=== PATIENT | female | born 1965 | race African-American/Black ===

== ENCOUNTER 2016-05-02 15:36 | Emergency (ER) ==
[2016-05-02 16:02] VITALS: BP 141/78
[2016-05-02] MEDS ORDERED: MOTRIN PO ONE (16:32)
--- NOTE | 2016-05-02 16:36 | PROVIDER DOCUMENTATION ---
HPI-Musculoskeletal Pain/Inj - GENERAL Chief Complaint: Extremity Pain Stated Complaint: LEG PAIN Time Seen by Provider: 05/02/16 16:08 Source: patient, old records - HX OF PRESENT ILLNESS-MUSKULOSKELTAL Nature of Presenting Problem: This pt, who is well known to the ED, presents today c complaints of LLE pain and "freezing up." She has presented c similar complaints on numerous occasions. She reports that she needs something "strong for her pain." She states that she has been trying to get in c pain management but "no one will take me." She is moving her extremity in the room without difficulty. No other issues or complaints. Quality of Pain: reports: aching Severity in ED: mild Onset/Duration: other (see hpi) Timing: still present Modifying Factors: improves with: movement Any recent injury?: No Similar Symptoms Previously?: Yes Recently seen or treated by another doctor?: Yes Review of Systems - Adult - REVIEW OF SYSTEMS - ADULT Constitutional: reports: no symptoms reported. denies: chills, fever Eyes: reports: no symptoms reported. denies: discharge, dry eyes Ears, Nose, Mouth & Throat: reports: no symptoms reported. denies: ear discharge, ear pain Cardiovascular: reports: no symptoms reported. denies: chest pain, edema Respiratory: reports: no symptoms reported. denies: chronic cough, cough Gastrointestinal: reports: no symptoms reported. denies: abdominal pain, hematemesis Genitourinary: reports: no symptoms reported. denies: dysuria, discharge Musculoskeletal: reports: joint pain, muscle aches. denies: bone pain, back pain Integumentary: reports: no symptoms reported. denies: hives, hair loss Neurological: reports: no symptoms reported. denies: ataxia, dizziness/vertigo Psychiatric: reports: alcohol/drug dependence. denies: insomnia, panic attacks Endocrine: reports: no symptoms reported Hematologic/Lymphatic: reports: no symptoms reported Allergic/Immunologic: reports: no symptoms reported All Other Systems: Reviewed and Negative Past History - Adult - PAST MEDICAL HISTORY-ADULT Review of Records: reports: Old Records Reviewed, Nursing Assessment Review, Medications Reviewed, Social history reviewed & non-contributory. Major Childhood Illnesses: reports: denies history Cardiovascular: reports: CHF Respiratory: reports: denies history Gastrointestinal: reports: GERD Obstetrical/Gynecological: reports: denies history Genitourinary: reports: denies history Musculoskeletal: reports: chronic pain (back), intervertebral disc disease, neck /back injury, other (chronic LLE pain) Neurological: reports: TIA Psychiatric: reports: anxiety, depression, schizophrenia Endocrine/Immune: reports: denies history Other Conditions: reports: denies history - PRIOR SURGERIES/PROCEDURES Surgical/Procedure History: reports: back/neck, other (lumbar fusion) - IMMUNIZATION STATUS Childhood Immunizations: See Nurse Assessment Flu Vaccine: See Nurse Assessment - FAMILY HISTORY Family History: reviewed, not pertinent Physical Exam-Injury Related - Physical Exam-Injury Related Initial Vital Signs Reviewed: Yes General Appearance: appears well, alert, no apparent distress Eyes: PERRL/EOMI, pink conjunctivae Head, Ears, Nose, Mouth & Throat: normocephalic/atraumatic, normal ENT inspection, TMs normal, pharynx normal Neck: non-tender, full range of motion, supple, normal inspection Respiratory: chest non-tender, lungs clear, normal breath sounds, no pleuratic chest pain, no respiratory distress, no accessory muscle use Cardiovascular: normal peripheral pulses, regular rate, rhythm, no edema, no gallop, no JVD, no murmur Abdominal Exam: normal bowel sounds, non tender, soft, no organomegaly, no pulsatile mass Lymphatic: no adenopathy Back Exam: normal inspection, no CVA tenderness, no vertebral tenderness Extremity: normal range of motion, normal gait, normal inspection, no pedal edema, no calf tenderness, normal capillary refill, pelvis stable, tenderness ( LLE; out of proportion to exam). 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 negative: motor weakness, sensory deficit Psych/Mental Status: AL, normal mood/affect, normal thought content, normal thought process, oriented x 3 Progress - PLAN OF CARE/RESULTS Progress/Plan/Lab Results: Orders Category Date Time Status Ibuprofen [Motrin] Med 05/02/16 16:32 Discontinued 800 mg PO NOW ONE Vital Signs Temp Pulse Resp BP Pulse Ox 05/02/16 16:00 97.9 F 103 H 20 141/78 100 fluphenazine Allergy (Unknown, Verified 05/02/16 16:34) Unknown Penicillins Allergy (Unknown, Verified 05/02/16 16:34) Unknown No Home Medications 04/27/16 Had a long conversation c pt about the treatment of chronic pain and the use of the ER. I informed her that I would not be filling any narcotic prescriptions. She became agitated and began to argue but I stopped the conversation and told her that I would give her antiinflammatories but nothing else. Pt will be d/c home. Departure - Departure Time of Disposition Order: 16:36 DIAGNOSIS: Leg pain, left Chronic pain Qualifiers: Chronic pain type: other chronic pain Qualified Code(s): G89.29 - Other chronic pain Disposition: HOME 01 Certified Medical Emergency: Urgent Condition: Good Additional Instructions: Take medication as prescribed. ED Follow Up Instructions: You have been treated by a care provider in the Emergency Department. These instructions are being provided to you so you can have an understanding of how to care for yourself upon discharge. Upon discharge from the Emergency Department, you are responsible for making arrangements for follow-up care by a physician of your choice. Take all prescribed medications as directed. Return to the Emergency Department immediately for any new or worsening symptoms. You may call the Physician Referral phone number at [phone] to obtain a list of Physicians who are taking new patients. Prescriptions: Meloxicam [Mobic] 7.5 mg PO DAILY PRN PRN #15 tablet PRN Reason: Pain Omeprazole [Prilosec] 20 mg PO DAILY@0700 #20 capsule Attestation - Physician/ Mid-level Attestation Patient care was provided by Mid-level provider (AMMUNITION STOREKEEPER/PA):: Yes Mid-level provider:: Chris Cardenas Mid-level documentation review:: The Mid-level provider documentation, treatment plan and medical decision making was reviewed by the physician who agrees with all treatment and medical decision making by the MLP.
== END 2016-05-02 16:48 | disposition home or self-care (01) ==
LOC: ED 15:36
DX: M79.605 Pain in left leg (principal); G89.29 Other chronic pain; M79.1 Myalgia; M54.9 Dorsalgia, unspecified; Z86.73 Personal history of transient ischemic attack (TIA), and cerebral infarction without residual deficits; Z98.1 Arthrodesis status
CPT/HCPCS: 99282

== ENCOUNTER 2016-05-03 16:14 | Emergency (ER) ==
[2016-05-03] MEDS ORDERED: TORADOL PO ONE (18:27)
--- NOTE | 2016-05-03 18:29 | PROVIDER DOCUMENTATION ---
HPI-Musculoskeletal Pain/Inj - GENERAL Chief Complaint: Extremity Pain Stated Complaint: EXTREMITY PAIN Time Seen by Provider: 05/03/16 18:17 Source: patient - HX OF PRESENT ILLNESS-MUSKULOSKELTAL Nature of Presenting Problem: Pt is a 50 y/o AA female c chief complaint of bilat lower extremity pain x 3 months. Pt states her legs feel like, "they are jumping all over the place." Pt has a long h/o psychiatric disorder (paranoid schizophrenia), polysubstance abuse, and chronic lower extremity pain. Pt states that she was seen at [facility] last night but is not going to take the NSAIDs she was prescribed. Pt does also have a h/o perforated gastric ulcers. On arrival, pt is oriented, ambulatory, and in no distress. She denies SI/HI or changes in her baseline schizophrenia. Pt is followed by mental health. Review of Systems - Adult - REVIEW OF SYSTEMS - ADULT Constitutional: reports: no symptoms reported. denies: chills, fatique Eyes: reports: no symptoms reported. denies: blurred vision, double vision Ears, Nose, Mouth & Throat: reports: no symptoms reported. denies: ear pain, nose pain Cardiovascular: reports: no symptoms reported. denies: chest pain, irregular heart rate Respiratory: reports: no symptoms reported. denies: cough, shortness of breath Gastrointestinal: reports: no symptoms reported. denies: abdominal pain, nausea Genitourinary: reports: no symptoms reported. denies: dysuria, hematuria Musculoskeletal: reports: bone pain, frequent leg cramps, muscle aches. denies : joint swelling Integumentary: reports: no symptoms reported. denies: itching, rash Neurological: reports: no symptoms reported. denies: numbness, paresthesia Psychiatric: reports: no symptoms reported. denies: anxiety, emotional problems Endocrine: reports: no symptoms reported. denies: cold intolerance, heat intolerance Hematologic/Lymphatic: reports: no symptoms reported. denies: blood clots, lymphedema Allergic/Immunologic: reports: no symptoms reported. denies: allergic reactions , frequent infections All Other Systems: Reviewed and Negative Past History - Adult - PAST MEDICAL HISTORY-ADULT Review of Records: reports: Old Records Reviewed, Nursing Assessment Review, Medications Reviewed, Social history reviewed & non-contributory. Major Childhood Illnesses: reports: denies history Cardiovascular: reports: CHF Respiratory: reports: denies history Gastrointestinal: reports: GERD Obstetrical/Gynecological: reports: denies history Genitourinary: reports: denies history Musculoskeletal: reports: chronic pain (back), intervertebral disc disease, neck /back injury, other (chronic LLE pain) Neurological: reports: TIA Psychiatric: reports: anxiety, depression, schizophrenia Endocrine/Immune: reports: denies history Other Conditions: reports: denies history - PRIOR SURGERIES/PROCEDURES Surgical/Procedure History: reports: back/neck, other (lumbar fusion) - IMMUNIZATION STATUS Childhood Immunizations: See Nurse Assessment Flu Vaccine: See Nurse Assessment - FAMILY HISTORY Family History: reviewed, not pertinent Physical Exam-Injury Related - Physical Exam-Injury Related Initial Vital Signs Reviewed: Yes General Appearance: appears well, alert, no apparent distress Eyes: PERRL/EOMI, pink conjunctivae Head, Ears, Nose, Mouth & Throat: normocephalic/atraumatic, normal ENT inspection, TMs normal, pharynx normal Neck: non-tender, full range of motion, supple, normal inspection Respiratory: chest non-tender, lungs clear, normal breath sounds, no pleuratic chest pain, no respiratory distress, no accessory muscle use Cardiovascular: normal peripheral pulses, regular rate, rhythm, no edema, no gallop, no JVD, no murmur Abdominal Exam: normal bowel sounds, non tender, soft, no organomegaly, no pulsatile mass Lymphatic: no adenopathy Back Exam: normal inspection, no CVA tenderness, no vertebral tenderness Extremity: normal range of motion, non-tender, normal gait, normal inspection, no pedal edema, no calf tenderness, normal capillary refill, pelvis stable Integumentary: normal color, warm/dry 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 [Klor-Con] Med 05/03/16 19:36 Once 40 meq PO NOW ONE Tramadol [Ultram] Med 05/03/16 18:30 Discontinued 50 mg PO NOW ONE Laboratory Tests 05/03/16 05/03/16 18:58 18:58 WBC 7.19 RBC 4.30 Hgb 12.1 Hct 37.2 MCV 86.5 MCH 28.1 MCHC 32.5 L RDW Std Deviation 15.4 H Plt Count 318 MPV 8.9 Immature Gran % (Auto) 0.1 Neut % (Auto) 53.5 Lymph % (Auto) 33.9 [place] % (Auto) 10.2 H Eos % (Auto) 1.9 Baso % (Auto) 0.4 Immature Gran # (Auto) 0.01 Neut # (Auto) 3.84 Lymph # (Auto) 2.44 [place] # (Auto) 0.73 H Eos # (Auto) 0.14 Baso # (Auto) 0.03 Sodium 138 Potassium 3.3 L Chloride 102 Carbon Dioxide 27 Anion Gap 9 BUN 12 Creatinine 0.4 L Estimated GFR/1.73 m2 > 60 BUN/Creatinine Ratio 30 Glucose 140 H Calculated Osmolality 278 Calcium 9.6 Vital Signs - 24 hr 05/03/16 05/03/16 16:45 16:49 Temperature 97.1 F L Pulse Rate 83 Respiratory 18 Rate Blood Pressure 148/86 O2 Sat by Pulse 100 Oximetry Departure - Departure Time of Disposition Order: 18:28 DIAGNOSIS: Hypokalemia Chronic leg pain Qualifiers: Laterality: bilateral Qualified Code(s): M79.604 - Pain in right leg Disposition: HOME 01 Certified Medical Emergency: Emergent Condition: Stable Additional Instructions: ED Follow Up Instructions: You have been treated by a care provider in the Emergency Department. These instructions are being provided to you so you can have an understanding of how to care for yourself upon discharge. Upon discharge from the Emergency Department, you are responsible for making arrangements for follow-up care by a physician of your choice. Take all prescribed medications as directed. Return to the Emergency Department immediately for any new or worsening symptoms. You may call the Physician Referral phone number at [phone] to obtain a list of Physicians who are taking new patients. Prescriptions: Potassium Chloride E.r. [Klor-Con] 10 meq PO DAILY #30 tablet Acetaminophen/Diphenhydramine [Percogesic 325-12.5 mg Tablet] 1 each PO Q4-6H PRN PRN #20 tablet PRN Reason: Pain Referrals: None,PCP [Primary Care Provider] - [facility] [Provider Group] Attestation - Physician/ Mid-level Attestation Patient care was provided by Mid-level provider (RESEARCH EDITOR/PA):: Yes Mid-level provider:: Vernon Torres Mid-level documentation review:: The Mid-level provider documentation, treatment plan and medical decision making was reviewed by the physician who agrees with all treatment and medical decision making by the MLP.
[2016-05-03] MEDS ORDERED: ULTRAM PO ONE (18:30)
[2016-05-03 19:14] LABS: MANUAL DIFF NEEDED? NO
[2016-05-03 19:19] LABS: BASO% 0.4 % (0.0-0.8); EOS# 0.14 X1000 (0.0-0.7); EOS% 1.9 % (0.0-10.0); HEMATOCRIT 37.2 % (37.0-47.0); HEMOGLOBIN 12.1 g/dL (12.0-16.0); IMM GRAN# 0.01 X1000 (0.0-0.04); IMM GRAN% 0.1 % (0.0-0.5); LYMPH# 2.44 X1000 (1.2-3.4); LYMPH% 33.9 % (20.5-51.1); MCH 28.1 PG (27-31); MCHC 32.5 g/dL (33-37); MCV 86.5 FL (81-99); MONO# 0.73 X1000 (0.11-0.59); MONO% 10.2 % (1.7-9.3); MPV 8.9 FL (7.4-10.4); NEUT% 53.5 % (42.2-75.2); PLT 318 X1000 (130-400)
[2016-05-03 19:30] LABS: AGAP 9; BUN 12 mg/dL (8-22); CALCIUM 9.6 mg/dL (8.8-10.2); CHLORIDE 102 mmol/L (98-107); COSMO 278; POTASSIUM 3.3 mmol/L (3.5-5.1); SODIUM 138 mmol/L (136-145); TCO2 27 mmol/L (25-35)
[2016-05-03] MEDS ORDERED: KLOR-CON PO ONE (19:36)
[2016-05-03 20:00] VITALS: BP 122/77
== END 2016-05-03 19:59 | disposition home or self-care (01) ==
LOC: P.ED 16:14
DX: E87.6 Hypokalemia (principal); G89.29 Other chronic pain; M79.605 Pain in left leg; M79.604 Pain in right leg; M79.1 Myalgia; R25.2 Cramp and spasm; M54.9 Dorsalgia, unspecified; Z86.73 Personal history of transient ischemic attack (TIA), and cerebral infarction without residual deficits; Z98.1 Arthrodesis status
CPT/HCPCS: 80048; 85025; 99283

== ENCOUNTER 2016-05-05 01:40 | Emergency (ER) ==
[2016-05-05 01:49] VITALS: BP 134/89
--- NOTE | 2016-05-05 02:14 | PROVIDER DOCUMENTATION ---
HPI-Musculoskeletal Pain/Inj - GENERAL Chief Complaint: Extremity Pain Stated Complaint: LEFT LEG PAIN Time Seen by Provider: 05/05/16 01:43 Source: patient - HX OF PRESENT ILLNESS-MUSKULOSKELTAL Nature of Presenting Problem: 50 year old F presents to the ED with a cc of left leg pain. PT was seen last night at [place] for the same. PT pain is chronic. Quality of Pain: reports: aching Severity in ED: mild Onset/Duration: 24 hours ago Timing: still present Modifying Factors: improves with: nothing Any recent injury?: No Locality of Occurance: Home Similar Symptoms Previously?: Yes Recently seen or treated by another doctor?: Yes - LOWER EXTREMITY PAIN/INJURY Lower Extremities Pain: leg: left Context / Method of Injury: reports: unknown Associated Symptoms: reports: denies symptoms Review of Systems - Adult - REVIEW OF SYSTEMS - ADULT Constitutional: denies: chills, fever Eyes: reports: no symptoms reported Ears, Nose, Mouth & Throat: reports: no symptoms reported Cardiovascular: denies: chest pain, palpitations Respiratory: denies: cough, wheezing Gastrointestinal: denies: nausea, vomiting Genitourinary: reports: no symptoms reported Musculoskeletal: reports: muscle aches. denies: muscle weakness Integumentary: denies: skin sores/ulcer, skin thickening Neurological: reports: no symptoms reported Psychiatric: reports: no symptoms reported Endocrine: reports: no symptoms reported Hematologic/Lymphatic: reports: no symptoms reported Allergic/Immunologic: reports: no symptoms reported All Other Systems: Reviewed and Negative Past History - Adult - PAST MEDICAL HISTORY-ADULT Review of Records: reports: Nursing Assessment Review, Medications Reviewed Major Childhood Illnesses: reports: denies history Cardiovascular: reports: CHF Gastrointestinal: reports: GERD Musculoskeletal: reports: chronic pain (back), intervertebral disc disease, neck /back injury, other (chronic LLE pain) Neurological: reports: TIA Psychiatric: reports: anxiety, depression, schizophrenia - PRIOR SURGERIES/PROCEDURES Surgical/Procedure History: reports: back/neck, other (lumbar fusion) - IMMUNIZATION STATUS Childhood Immunizations: See Nurse Assessment Flu Vaccine: See Nurse Assessment - FAMILY HISTORY Family History: reviewed, not pertinent - SOCIAL HISTORY Smoking: cigarettes, greater than 1 pack/day Provider spent 3-5 mins advising pt. on dangers of tobacco.: Discussed manners to quit use, and f/u contacts for add'l counseling. Substance Use: none/never Alcohol Use Frequency: never Physical Exam-Injury Related - Physical Exam-Injury Related Initial Vital Signs Reviewed: Yes General Appearance: appears well, alert, no apparent distress Respiratory: chest non-tender, lungs clear, normal breath sounds Cardiovascular: normal peripheral pulses, regular rate, rhythm, no edema Extremity: normal inspection Integumentary: normal color, warm/dry Psych/Mental Status: AL, normal mood/affect, normal thought content, normal thought process, oriented x 3 Progress - PLAN OF CARE/RESULTS Progress/Plan/Lab Results: plan of care: medications Orders Category Date Time Status Hydroxyzine Med 05/05/16 02:17 Once 50 mg IM NOW ONE Vital Signs - 24 hr 05/05/16 01:47 Temperature 98.2 F Pulse Rate 95 H Respiratory 20 Rate Blood Pressure 134/89 O2 Sat by Pulse 99 Oximetry Pt given results and will be d/c home w/ rx to follow up with PCP. Pt verbally understood instructions. PT remained clinically stable throughout the course of the ED stay and will return if symptoms worsen. Departure - Departure Time of Disposition Order: 02:18 DIAGNOSIS: Leg pain, left Chronic pain Qualifiers: Chronic pain type: chronic pain syndrome Qualified Code(s): G89.4 - Chronic pain syndrome Chronic leg pain Qualifiers: Laterality: left Qualified Code(s): M79.605 - Pain in left leg Disposition: HOME 01 Certified Medical Emergency: Emergent Condition: Good Additional Instructions: Follow up with primary care doctor. Return to ED for any new or worsening symptoms. Establish care with a primary physician by calling the physician referral line below. ED Follow Up Instructions: You have been treated by a care provider in the Emergency Department. These instructions are being provided to you so you can have an understanding of how to care for yourself upon discharge. Upon discharge from the Emergency Department, you are responsible for making arrangements for follow-up care by a physician of your choice. Take all prescribed medications as directed. Return to the Emergency Department immediately for any new or worsening symptoms. You may call the Physician Referral phone number at [phone] to obtain a list of Physicians who are taking new patients. Prescriptions: Hydroxyzine Pamoate [Vistaril] 25 mg PO TID PRN PRN #60 capsule PRN Reason: Pain Referrals: None,PCP [Primary Care Provider] - Attestation - Scribe Verification/Attestation Scribe:: Theresa Aguillon Acting as Scribe for:: Jeremiah Clements Scribregina documention review:: This chart was documented by a scribe and accurately reflects the service the provider performed and the decisions made by the provider. Physician Attestation - Physician Attestation I, the provider, attest to the following statement:: Jeremiah Clements Physician documentation Attestation:: This documentation recorded by the scribe accurately reflects the service I personally performed and the decisions made by me.
[2016-05-05] MEDS ORDERED: HYDROXYZINE IM ONE (02:17)
== END 2016-05-05 02:46 | disposition home or self-care (01) ==
LOC: ED 01:40
DX: G89.4 Chronic pain syndrome (principal); M79.605 Pain in left leg; M79.1 Myalgia; M54.9 Dorsalgia, unspecified; F17.210 Nicotine dependence, cigarettes, uncomplicated; Z71.6 Tobacco abuse counseling; Z86.73 Personal history of transient ischemic attack (TIA), and cerebral infarction without residual deficits; K21.9 Gastro-esophageal reflux disease without esophagitis; Z79.899 Other long term (current) drug therapy
CPT/HCPCS: 96372; J3410

== ENCOUNTER 2016-10-02 12:39 | Inpatient (IN) ==
[2016-10-02 13:38] LABS: MANUAL DIFF NEEDED? NO
[2016-10-02 13:41] LABS: BASO% 0.3 % (0.0-0.8); EOS# 0.17 X1000 (0.0-0.7); EOS% 2.7 % (0.0-10.0); HEMATOCRIT 38.4 % (37.0-47.0); HEMOGLOBIN 13.1 g/dL (12.0-16.0); LYMPH# 2.66 X1000 (1.2-3.4); LYMPH% 42.9 % (20.5-51.1); MCH 31.2 PG (27-31); MCHC 34.1 g/dL (33-37); MCV 91.4 FL (81-99); MONO# 0.63 X1000 (0.11-0.59); MONO% 10.2 % (1.7-9.3); MPV 8.8 FL (7.4-10.4); NEUT% 43.9 % (42.2-75.2); PLT 311 X1000 (130-400)
[2016-10-02] MEDS ORDERED: NS 1,000 ML IV ONE (13:41)
[2016-10-02 13:54] LABS: BILIRUBIN URINE NEGATIVE (NEGATIVE); BLOOD URINE NEGATIVE (NEGATIVE); COLOR STRAW; GLUCOSE URINE NEGATIVE (NEGATIVE); LEUKOCYTES URINE NEGATIVE (NEGATIVE); NITRITE URINE NEGATIVE (NEGATIVE); PROTEIN URINE NEGATIVE (NEGATIVE); SP GRAVITY URINE 1.004; TURBIDITY URINE CLEAR (CLEAR); URINE CULTURE NEEDED? NO; URINE MICRO REVIEW NEEDED? NO; URINE SOURCE CLEAN CATCH; UROBILINOGEN URINE NORMAL (NORMAL)
[2016-10-02 13:56] LABS: UR EPITHELIAL CELLS <10 /HPF (<10); URINE BACTERIA NEGATIVE /HPF; URINE RBC <10 /HPF (<10); URINE WBC <10 /HPF (<10)
[2016-10-02 13:58] LABS: ACETAMINOPHEN < 1.2 ug/mL (10-30); AGAP 13; ALBUMIN 3.7 g/dL (3.5-5.0); ALKALINE PHOSPHATASE 107 U/L (32-104); BUN 12 mg/dL (8-22); CALCIUM 8.8 mg/dL (8.8-10.2); CHLORIDE 99 mmol/L (98-107); COSMO 277; GOT 13 U/L (10-30); GPT 8 U/L (10-36); MAGNESIUM 1.7 mg/dL (1.5-2.7); POTASSIUM 3.6 mmol/L (3.5-5.1); SODIUM 139 mmol/L (136-145); TCO2 27 mmol/L (25-35); TOTAL BILIRUBIN 0.22 mg/dL (0.20-1.00); TOTAL PROTEIN 6.5 g/dL (6.3-8.3)
[2016-10-02 14:09] LABS: UR AMPHETAMINES MT NONE DETECTED (NONE DETECT); UR BARBITUATES MT NONE DETECTED (NONE DETECT); UR BENZODIAZ MT NONE DETECTED (NONE DETECT); UR CANNABIS MEDTOX NONE DETECTED (NONE DETECT); UR COCAINE MT NONE DETECTED (NONE DETECT); UR OPIATES MT PRESUMPTIVE POS (NONE DETECT); UR PCP MEDTOX NONE DETECTED (NONE DETECT)
[2016-10-02 14:10] LABS: UR METHADONE MEDTOX NONE DETECTED (NONE DETECT); UR OXYCODONE MEDTOX NONE DETECTED (NONE DETECT)
[2016-10-02 14:16] LABS: FREE T4 0.83 ng/dL (0.93-1.70)
[2016-10-02 16:14] LABS: PROTIME 10.5 Seconds (9.2-11.7)
[2016-10-02] MEDS ORDERED: KLOR-CON PO ONE (17:13)
[2016-10-02] MEDS ORDERED: MILK OF MAGNESIA PO ONE (17:13)
[2016-10-02] MEDS ORDERED: NICODERM PATCH TD ONE (17:14)
[2016-10-02] MEDS ORDERED: ATIVAN PO ONE (17:14)
--- NOTE | 2016-10-02 17:17 | PROVIDER DOCUMENTATION ---
This chart was entered by Lexi Nava Scribe, acting as scribe for Damian Cabrales MD. HPI-General Adult - General Chief Complaint: General Adult Stated Complaint: POSS REACTION TO MEDICATION Time Seen by Provider: 10/02/16 12:53 Source: patient Allergies/Adverse Reactions: Patient Allergies Allergy/AdvReac Type Severity Reaction Status Date / Time fluphenazine Allergy Unknown Unknown Verified 10/02/16 13:33 Penicillins Allergy Unknown Unknown Verified 10/02/16 13:33 Home Medications: Home Medication List Medication Instructions Recorded Confirmed Last Taken Type Ropinirole HCl [Requip] 0.25 mg PO QHS #10 tablet 09/20/16 10/02/16 Unknown Rx Cyclobenzaprine [Flexeril] 10 mg PO TID #20 tablet 09/30/16 10/02/16 10/02/16 08 :30 Rx Paliperidone Palmitate [Invega 1 dose IM DIRECTED 10/02/16 10/02/16 Unknown History Sustenna] - History of Present Illness -Gen Adult Nature of Presenting Problems: Pt is a 51 year old male who came to the ED with a cc of taking 2-3 of her sisters lortab and taking 2-3 flexeril this morning. Pt reports her legs are stiff after taking the medication. Pt reports her legs "jump" all night and keep her up. Pt reports she is bipolar. Location of Pain/Injury: reports: lower extremity Pain Radiation: reports: legs (lower) Quality of Pain: reports: cramping Onset/Duration: reports: this morning Timing: reports: still present Context/Activities at Onset: reports: none Modifying Factors: improves with: nothing Associated Symptoms: reports: denies symptoms Similar Symptoms Previously?: No Recently seen or treated by another doctor?: No Review of Systems - Adult - REVIEW OF SYSTEMS - ADULT Constitutional: denies: chills, fever Eyes: reports: no symptoms reported Ears, Nose, Mouth & Throat: reports: no symptoms reported Cardiovascular: reports: no symptoms reported Respiratory: reports: no symptoms reported Gastrointestinal: denies: diarrhea, nausea, vomiting Genitourinary: reports: no symptoms reported Musculoskeletal: reports: muscle weakness (bilat legs). denies: frequent leg cramps, joint swelling Integumentary: reports: no symptoms reported Neurological: reports: no symptoms reported Psychiatric: reports: insomnia. denies: anxiety, panic attacks Endocrine: reports: no symptoms reported Hematologic/Lymphatic: reports: no symptoms reported Allergic/Immunologic: reports: no symptoms reported All Other Systems: Reviewed and Negative Past History - Adult - PAST MEDICAL HISTORY-ADULT Review of Records: reports: Nursing Assessment Review Major Childhood Illnesses: reports: denies history Cardiovascular: reports: CHF Respiratory: reports: denies history Gastrointestinal: reports: GERD Obstetrical/Gynecological: reports: denies history Genitourinary: reports: denies history Musculoskeletal: reports: chronic pain (back), intervertebral disc disease, neck /back injury, other (chronic LLE pain) Neurological: reports: TIA Psychiatric: reports: anxiety, depression, schizophrenia Endocrine/Immune: reports: denies history Other Conditions: reports: denies history - PRIOR SURGERIES/PROCEDURES Surgical/Procedure History: reports: back/neck, other (lumbar fusion) - IMMUNIZATION STATUS Childhood Immunizations: See Nurse Assessment Flu Vaccine: See Nurse Assessment - FAMILY HISTORY Family History: reviewed, not pertinent Physical Exam-General - PHYSICAL EXAM-ADULT Initial Vital Signs Reviewed: Yes - CONSTITUTIONAL General Appearance: alert, no apparent distress - EYES Eyes: PERRL/EOMI, pink conjunctivae - HEAD, EARS, NOSE, MOUTH & THROAT HENMT: normocephalic/atraumatic, dental decay - NECK Neck: non-tender - RESPIRATORY Respiratory: chest non-tender, lungs clear - CARDIOVASCULAR Cardiovascular: normal peripheral pulses, regular rate, rhythm - GASTROINTESTINAL (ABDOMEN) Abdominal Exam: normal bowel sounds, non tender, soft - MUSCULOSKELETAL Back Exam: normal inspection, no CVA tenderness Extremity: normal range of motion, non-tender - SKIN Integumentary: normal color, normal turgor - NEUROLOGIC Neurologic: grossly normal - PSYCHIATRIC Psych/Mental Status: normal mood/affect, normal thought content, normal thought process, oriented x 3 Progress - PLAN OF CARE/RESULTS Progress/Plan/Lab Results: Vital Signs - 8 hr 10/02/16 12:43 Temperature 98.6 F Pulse Rate 90 Respiratory Rate 18 Blood Pressure 153/79 O2 Sat by Pulse Oximetry 100 Orders Category Date Time Status ACETAMINOPHEN [TDM] Stat Lab 10/02/16 12:54 Uncollected ALCOHOL BLOOD Stat Lab 10/02/16 12:54 Uncollected CBC WITH ELECTRONIC DIFF [HEME] Stat Lab 10/02/16 12:54 Uncollected COMPREHENSIVE METABOLIC PANEL [CHEM] Stat Lab 10/02/16 12:54 Uncollected FREE T4 Stat Lab 10/02/16 12:54 Uncollected MAGNESIUM [CHEM] Stat Lab 10/02/16 12:54 Uncollected SALICYLATES [TDM] Stat Lab 10/02/16 12:54 Uncollected TSH Stat Lab 10/02/16 12:54 Uncollected URINALYSIS W/POSS RFLX CULT-1 [URINALYSIS] Stat Lab 10/02/16 12:54 Uncollected URINE DRUG SCREEN Stat Lab 10/02/16 12:54 Uncollected VITAMIN B12 Stat Lab 10/02/16 12:54 Uncollected Result Diagrams: 10/02/16 13:26 10/02/16 13:26 - REASSESSMENT Reassessment #1 Time Reassessed: 16:54 Status: unchanged (Pt keep asking ofr pain meds. Awaiting for Poison control to call back for final instuctions. Pt and family declined Psych eval with stating that pt has no SI/HI and seh does nto need s Psych eval.) Reassessment #2 Time Reassessed: 17:15 Status: improving (Per Poison control - pt needs to admitted for at least 23 hours and suggested a Psych consult.) - CONSULTS/PCP/HOSPITALIST Notification #1 *Consult/PCP/Hospitalist*: Swati/Hospitalist Time Discussed: 17:17 Consult Disposition: Admit Departure - Departure Date of Disposition Decision: 10/02/16 Time of Disposition Decision: 17:16 DIAGNOSIS: Psychosis, Multiple drug overdose Disposition: ADMITTED INPATIENT 09 Certified Medical Emergency: Emergent Condition: Stable Referrals and Follow-Ups: Lisa De Paz CRNP [Primary Care Provider] - - Critical Care Note This patient required my direct & personal management of CC.: No This chart was documented by the indicated scribe, (Lexi Nava Scribe) and accurately reflects the services I performed and decisions made by me, Damian Cabrales MD, as attested by the provider's signature.
[2016-10-02] MEDS ORDERED: ATIVAN IV ONE (17:25)
[2016-10-02] MEDS ORDERED: ZOFRAN IV PRN (20:39)
[2016-10-02] MEDS ORDERED: SODIUM CHLORIDE 0.9% INJ SCH (20:45)
[2016-10-02] MEDS: NS 1,000 ML IV SCH (23:00)
[2016-10-02] MEDS: PROTONIX IV SCH (23:01)
--- NOTE | 2016-10-02 23:19 | HISTORY AND PHYSICAL ---
DATE OF ADMISSION: 10/02/2016. CHIEF COMPLAINT: Left leg pain. HISTORY OF PRESENT ILLNESS: This is a 51-year-old, female, who came in today with a complaint of pain. Also apparently, she had taken 3 Norcos and 4 Flexerils to try to help this pain. The emergency room doctor tried to convince the patient to be admitted for observation. Dr. Colindres from the hospitalist service, spoke to the patient, who wanted to leave against medical advice. Apparently at some point, she stated that she repeated the process of taking that medication 2-3 times. Poison Control recommended being admitted for observation. She does have a past medical history of schizophrenia, depression, anxiety, and gastroesophageal reflux disease, as well as a gastric perforation. The family apparently was here earlier in the day and they stated that the patient has a problem with taking pain medication. The patient stated that she does not have suicidal ideation. But apparently at some point, she had told someone in the emergency room that she did have a suicidal ideation. It is still unclear on this. At any rate, she will be admitted to the Intensive Care Unit for observation. PAST MEDICAL HISTORY: 1. Perforated gastric ulcer. 2. Schizophrenia. 3. Depression. 4. Anxiety. 5. Nicotine dependence. 6. Gastroesophageal reflux disease. 7. Chronic pain with chronic opioid use. SURGICAL HISTORY: 1. Exploratory lap with a perforated gastric ulcer repair. 2. Lumbar spine surgery. SOCIAL HISTORY: 1. . 2. Smokes 1 pack to a pack and half of cigarettes a day. 3. Denies alcohol or illicit drug use or abuse. HOME MEDICATIONS: 1. Ropinirole 0.25 mg p.o. at bedtime. 2. Flexeril 10 mg p.o. t.i.d. p.r.n. 3. Invega 1 dose IM as directed. ALLERGIES: 1. Penicillin. 2. Morphine. 3. Fluphenazine. REVIEW OF SYSTEMS: Fourteen point review of systems conducted with the patient and she has no complaint. Pertinent positives listed above in the History of Present Illness. All other systems reviewed and found to be negative. PHYSICAL EXAMINATION: VITAL SIGNS: Temperature 98.6 degrees, pulse 86, respirations 22, blood pressure 171/99, oxygen saturation 99% on room air. GENERAL: Ms. Sánchez is a 51-year-old female, lying in the emergency room bed. She is sleeping soundly on arrival for examination and appears she received a couple of doses of Ativan while in the emergency room. The patient did wake, answers questions appropriately. PSYCH: Alert and oriented x3. No acute distress. HEENT: Head is atraumatic, normocephalic. Pupils equal, round, and reactive to light. Extraocular eye movement intact. Sclerae is anicteric. Oral mucosa is dry. NECK: Supple. No JVD. No thyromegaly. Trachea is midline. CARDIAC: Regular rhythm. S1-S2 appreciated. No murmurs, gallops, rubs. LUNGS: Clear to auscultation bilaterally. Symmetrical rise and fall with respirations. ABDOMEN: Soft, nondistended, nontender. Bowel sounds present in all 4 quadrants. Normoactive. No pulsatile mass. No organomegaly. EXTREMITIES: No clubbing, cyanosis. 1+ edema bilateral lower extremities, nonpitting. LABORATORY DATA: CBC: Within normal limits. Coags: Within normal limits. Chemistry panel: Within normal limits. Urine: Unremarkable. Toxicology screen: Presumptively positive for opiates with a normal acetaminophen and salicylate level. Plasma alcohol: 0. ASSESSMENT AND PLAN: 1. Possible overdose. The patient stated that she took multiple Norcos and Flexeril. She will be given fluids and admitted to the Intensive Care Unit for further evaluation and treatment. 2. Gastroesophageal reflux disease with a history of a perforated ulcer. We will start Protonix 40 IV daily. 3. Elevated blood pressure with no history of hypertension. We will monitor, give hydralazine as needed for systolic blood pressure greater than 160. 4. Chronic pain. At this time, we will not treat even with Tylenol, as we will be trending Tylenol levels for a questionable overdose on Norcos. We will restart pain medicine when appropriate. 5. Anxiety. 6. Depression. 7. Schizophrenia, aware. We will continue medications when appropriate. Further recommendations per the patient's clinical course. This is JACKIE Copeland, dictating on Ms. Anderson for Marques Rodas MD. Thank you. Dictated by JACKIE Mcneil for Marques Rodas MD cc: JACKIE Mcneil MD
[2016-10-03 06:59] LABS: MANUAL DIFF NEEDED? NO
[2016-10-03 07:01] LABS: BASO% 0.4 % (0.0-0.8); EOS# 0.18 X1000 (0.0-0.7); EOS% 2.2 % (0.0-10.0); HEMOGLOBIN 14.1 g/dL (12.0-16.0); IMM GRAN# 0.02 X1000 (0.0-0.04); IMM GRAN% 0.2 % (0.0-0.5); LYMPH% 23.3 % (20.5-51.1); MCH 30.7 PG (27-31); MCHC 34.4 g/dL (33-37); MCV 89.1 FL (81-99); MONO# 0.78 X1000 (0.11-0.59); MONO% 9.6 % (1.7-9.3); MPV 8.9 FL (7.4-10.4); NEUT% 64.3 % (42.2-75.2); PLT 333 X1000 (130-400)
[2016-10-03 07:13] LABS: PROTIME 10.5 Seconds (9.2-11.7); PTT 24.5 Seconds (22.0-36.0)
[2016-10-03 07:16] LABS: ACETAMINOPHEN < 1.2 ug/mL (10-30); AGAP 12; BUN 8 mg/dL (8-22); CALCIUM 9.2 mg/dL (8.8-10.2); CHLORIDE 102 mmol/L (98-107); COSMO 280; MAGNESIUM 1.9 mg/dL (1.5-2.7); SODIUM 141 mmol/L (136-145); TCO2 27 mmol/L (25-35)
[2016-10-03] MEDS: NS 1,000 ML IV SCH ×3 (07:34→17:34)
--- NOTE | 2016-10-03 11:14 | PROGRESS NOTE ---
DATE: 10/03/2016 HISTORY OF PRESENT ILLNESS: She presented yesterday late in the evening. A 51-year-old, female, came in complaining of pain. Had taken 3 [place] and 4 Flexeril to try to help her with the pain. The emergency room convinced the patient to be admitted for observation. Dr. Colindres from the hospitalists spoke to the patient. She wanted to leave against medical advice. Apparently, at some point, she stated she repeated the process of taking medications 2 or 3 times. Poison control recommended being admitted for observation. She had a past medical history of schizophrenia, depression, anxiety, gastroesophageal reflux. Also gastric perforation. Patient apparently had been her earlier in the day. Stated that there was problem with taking pain medication. The patient stated that she does not have suicidal ideation. Apparently, at some point, she had told someone in the emergency room that she did have it. At any rate, admitted to the ICU observation. PAST MEDICAL HISTORY: 1. Perforated gastric ulcer. 2. Schizophrenia. 3. Depression. 4. Anxiety. 5. Nicotine dependence. 6. Gastroesophageal reflux disease. 7. Chronic pain with chronic opioid use. SURGICAL HISTORY: 1. Exploratory laparotomy for perforated gastric ulcer repair. 2. Lumbar spine surgery. SOCIAL HISTORY: She is . Smokes one pack to a pack and half a day of cigarettes. HOME MEDICATIONS: Ropinirole 0.25 mg at bedtime, Flexeril 10 mg t.i.d. p.r.n., Invega 1 dose IM as directed. REVIEW OF SYSTEMS: She is feeling much better. I think we can move her to the floor. There is some question whether this is suicide ideation so I think a consult is already in for evaluation. PHYSICAL EXAMINATION: Vital Signs: Temperature 97.7 degrees, pulse 85, respirations 20, blood pressure 140/90. HEENT: Pupils are equal and round. Lungs: Are clear in all lung chavez. Cardiovascular Examination: Regular rhythm and rate without murmur or S3. Abdomen: Soft. Skin: Is warm and dry. Weight: 160 pounds. Is and Os: Output of 2200 mL. DIAGNOSTIC DATA: Reviewed the lab from yesterday which was unremarkable. Her urine drug screen, presumptive positive for opiates. Salicylate was less than 3. ASSESSMENT/PLAN: Took several muscle relaxers and some [place]. She appears to be hemodynamically stable. I think she is back to baseline. I will let her move to the floor. We will get a consult about possible suicide ideation. She is requesting something for her muscles, she says her lock down. I think we will resume her back on her home medications. She had some Flexeril at home. I will let her have a 10 mg p.o. q.8 hours p.r.n. She is on Invega Sustenna which is paliperidone palmitate 1 dose IM as directed and her ropinirole 0.25 mg at bedtime. cc: Cirilo Cervantes MD
[2016-10-03] MEDS ORDERED: INVEGA SUSTENNA IM SCH (14:25)
[2016-10-03] MEDS: HALDOL IM PRN ×2 (14:42→21:30)
[2016-10-03] MEDS: FLEXERIL PO SCH ×2 (14:42→17:32)
[2016-10-03] MEDS ORDERED: REQUIP PO SCH (21:00)
[2016-10-04 03:53] VITALS: BP 130/80
[2016-10-04] MEDS: PROTONIX IV SCH (03:53)
[2016-10-04] MEDS: NS 1,000 ML IV SCH (03:53)
[2016-10-04] MEDS: HALDOL IM PRN (03:59)
--- NOTE | 2016-10-04 05:34 | EKG Report ---
Test Performed on : 10/03/2016 06:30:50 AM Test Reason : overdose Blood Pressure : / mmHG Vent. Rate : 080 BPM Atrial Rate : 080 BPM P-R Int : 174 ms QRS Dur : 082 ms QT Int : 386 ms P-R-T Axes : 050 037 053 degrees QTc Int : 445 ms Normal sinus rhythm. Normal ECG When compared with ECG of 02-OCT-2016 16:08, (Unconfirmed) No significant change was found Confirmed by Aamir MÉNDEZ, Elvis Calvo ([id number]) on 10/05/2016 8:34:16 AM
--- NOTE | 2016-10-04 07:19 | EKG Report ---
Test Performed on : 10/02/2016 4:08:19 PM Test Reason : possible overdose Blood Pressure : / mmHG Vent. Rate : 074 BPM Atrial Rate : 074 BPM P-R Int : 164 ms QRS Dur : 082 ms QT Int : 402 ms P-R-T Axes : 038 017 039 degrees QTc Int : 446 ms Normal sinus rhythm. Normal ECG When compared with ECG of 10-FEB-2016 16:10, Vent. rate has decreased BY 83 BPM Unconfirmed Result
== END 2016-10-04 07:20 | disposition left against medical advice (07) ==
LOC: ED 12:39 → ICU 12:39 → OBSVTOIN 22:10 → SUATTDRO 22:10 → ICU 23:50 → 4N 10-03 14:25
PROVIDERS: ATTEND Emergency Medicine